=== PATIENT | male | born 1950 | race Two or more races ===

== ENCOUNTER 2017-03-01 10:23 | Day surgery (SDC) | payer BC ==
[~2017-03-01] VITALS: Ht 165.1 cm; Wt 57.6 kg
[2017-03-01 12:50] VITALS: Ht 165.1 cm; Wt 57.6 kg
[2017-03-01] MEDS ORDERED: MULTIVITAMIN PO (13:00)
[2017-03-01 13:58] VITALS: BP 157/91; PULSE 83; RESP 18
[2017-03-01] MEDS ORDERED: MIDAZOLAM 1 MG/ML 2 ML INJ ONE (14:09)
[2017-03-01] MEDS ORDERED: PROPOFOL 40 ML ONE (14:09)
[2017-03-01] MEDS ORDERED: LIDOCAINE 2% (SDV) 5 ML INJ ONE (14:09)
--- NOTE | 2017-03-01 14:54 | OPPN ---
Date/Time of Note Date/Time of Note DATE: 03/01/17 TIME: 14:33 Proc Note GI Procedure date: Mar 01, 2017 Pre-procedure Diagnosis * History of colon polyps/surveillance Post-procedure Diagnosis Assessment: * 8 mm polyp mid transverse colon. Snared and retrieved * 12 mm pedunculated polyp proximal rectum. Snared and retrieved * 5 mm sessile polyp distal rectum. Snared and retrieved * Large internal hemorrhoids * Otherwise normal colonoscopy to cecum Plan: * Review pathology * Annual Hemoccult stool testing * Surveillance colonoscopy in 5 years Operation Performed * Anoscopy with snare polypectomy 3 Surgeon: DAREN CALDERON MD Anesthesia Type: MAC Estimated blood loss: none Transfusion Required: no Specimens #1 Transverse colon polyp #2 proximal and distal rectum polyps Grafts/Implants: none Complications: no Pt Condition post procedure: stable Disposition: PACU Procedure Description After informed consent, with the patient/relatives understanding the procedure, its indications and potential risks and complications, including but not limited to: Allergic reaction, bleeding, perforation, infection, and after all pertinent questions were answered to the patient's satisfaction, the patient/ relatives signed the witnessed informed consent. Following this, premedication was administered slowly IV push under careful cardiovascular and respiratory monitoring with pulse [employer], automatic blood pressure, and hospital monitor. Once the sedative effect was achieved, the patient was placed in the left lateral decubitus position, digital rectal examination was performed. The colonoscope was then introduced and advanced under visual control throughout all segments of the colon including: the rectum, sigmoid, descending colon, splenic flexure, transverse colon, hepatic flexure, ascending colon and finally reaching the cecum which was clearly identified by transillumination, finger indentation and the ileocecal valve. Careful examination of the mucosa of the lower gastrointestinal tract both on insertion as well as withdrawal of the instrument disclosed the following findings: PREPARATION QUALITY: [Adequate], RECTAL EXAM: The anorectal area was visualized examined and digital rectal examination performed with the following findings: No evidence of perirectal disease, no masses. COLONIC MUCOSA: The mucosa of all segments of the colon was carefully examined and showed the following findings: There is an 8 mm polyp in the transverse colon. Snared and retrieved. A 12 mm pedunculated polyp was present in the proximal rectal. Snared and retrieved. 5 mm sessile polyp was also noted in the distal rectum. Snare and retrieved. Large internal hemorrhoids otherwise the examined mucosa appears within normal limits. There is no evidence of inflammatory changes, diverticular formation, other neoplasms, vascular malformation, or any other abnormality. The instrument was then withdrawn, the patient tolerated the procedure well and was transferred out of the Endoscopy Suite awake and in good condition to continue recovery under observation. DAREN CALDERON MD Mar 01, 2017 14:43
[2017-03-01 15:08] VITALS: BP 104/83; PULSE 66; RESP 14
== END 2017-03-01 16:05 | disposition home or self-care (01) ==
LOC: GIL 10:23
PROVIDERS: ATTEND Internal Medicine Gastroenterology
DX: Z12.11 Encounter for screening for malignant neoplasm of colon (principal); D12.7 Benign neoplasm of rectosigmoid junction; D12.3 Benign neoplasm of transverse colon; K64.8 Other hemorrhoids
CPT/HCPCS: 45380; 88305; J2250; Z7610